=== PATIENT | male | born 1995 | race Caucasian/White ===

== ENCOUNTER 2019-02-27 20:42 | Emergency (ER) | payer BC, SELFPAY ==
[2019-02-27 20:45] VITALS: BP 158/143; PULSE 92; RESP 18; TEMP 36.6; O2SAT 96
--- NOTE | 2019-02-27 21:37 | DI.RAD_ITS ---
EXAM: XR TOE LT GREAT INDICATION: pain, injury. COMPARISON: No exams were available for comparison TECHNIQUE: 2D digital imaging was performed. FINDINGS: There is a nondisplaced fracture at the lateral base of the distal phalanx of the great toe. There i s no significant separation at the articular surface. No additional fractures are seen. There is so ft tissue swelling of the great toe. IMPRESSION: Nondisplaced intra-articular fracture at the lateral base of the distal phalanx of the great toe.
--- NOTE | 2019-02-27 22:19 | DI.VRAD_ITS ---
PROCEDURE INFORMATION: Exam: XR Left Toe(s) Exam date and time: 02/27/2019 9:39 PM Age: 23 years old Clinical indication: Toes; Left; Patient HX: Pain, injury TECHNIQUE: Imaging protocol: XR Left toes. Views: Minimum 2 views. COMPARISON: No relevant prior studies available. FINDINGS: Bones/joints: No displaced fracture. A small linear lucency is seen along the lateral base articular surface. This may represent a small vascular groove. Cannot exclude a minor nondisplaced fracture.. Soft tissues: Soft tissue swelling of the great toe.. IMPRESSION: 1. Soft tissue swelling. 2. No displaced fracture. Linear lucency of lateral distal phalanx base articular surface. Possibly a nondisplaced fracture. May represent a vascular groove. Dictated and Authenticated by: Rayray Mead MD. Ordering:LALO Oshea MD
--- NOTE | 2019-02-27 22:37 | W.ED.GENAD ---
Discharge Plan Disposition Patient Disposition: HOME Condition: Good Discharge Details Chief Complaint: Orthopedic Clinical Impression: Fracture of toe Primary Care Provider: Oskar Tavares ED Provider: Dorie Ramirez Home Meds and New Rx's Prescriptions: No Action No Known Home Meds RF: 0 Discharge Instructions Instructions: RICE Therapy (ED) Additional Instructions: Rest. Activities as tolerated. Elevate injury to prevent swelling. Nash tape for comfort (use guaze between toes). Post operative for support Ice to the area of discomfort for 15 min. 3-5 times daily. Motrin every 8 hours with food or Tylenol every 6 hours for soreness if needed over the counter for comfort. Followup with orthopedic doctor as discussed in one week. Return for any worsening or concerns sooner if needed. Referrals: Dmitri Donovan MD [ [facility] STAFF PHYSICIAN] - Discharge Data Discharge Date/Time-TO BE ENTERED AT DEPARTURE: 02/27/19 22:50 Medical Decision Making Is a 23-year-old patient who presents to the emergency room for complaints of left great toe injury which he sustained when falling down 10 stairs. Patient denies any other sites of pain or injury. Fall occurred 2 days ago. Patient does report mild soreness left elbow but denies any significant neck or back pain. He denies any other extremity injury. Patient denies headache, dizziness, nausea, vomiting no vision change or blurred vision. No chest pain no difficulty breathing shortness of breath or wheezing. No abdominal pain or hematuria. Again patient is only complaint of left great toe. Patient has an otherwise benign physical exam with the exception of tenderness of his left great toe with no associated deformity. Distal neurovascularly intact. Flexion extension intact. X-rays ordered. X-rays revealFINDINGS: Bones/joints: No displaced fracture. A small linear lucency is seen along the lateral base articular surface. This may represent a small vascular groove. Cannot exclude a minor nondisplaced fracture.. Soft tissues: Soft tissue swelling of the great toe.. IMPRESSION: 1. Soft tissue swelling. 2. No displaced fracture. Linear lucency of lateral distal phalanx base articular surface. Possibly a nondisplaced fracture. May represent a vascular groove. Dictated and Authenticated by: Rayray Mead MD. Patient offered nash tape and postop shoe. Declines use of crutches. Rice encouraged. Encouraged follow-up with orthopedics as this is intra-articular. Patient reports his understanding. Referral was provided. The patient was stable and requested discharge. Prior to discharge, my usual and customary return precautions were reviewed with the patient - this included follow-up instructions and reasons to return to the Emergency Department if conditions worsens, does not improve as expected, or other new concerns arise. HPI General Date/Time Provider Initiated Documentation: 02/27/19 21:17. HPI Narrative: Is a 23-year-old patient presenting to the emergency room for complaints of a fall. Patient reports he fell down approximately 10 steps. Patient does report he injured his tailbone but is primarily complaining of left great toe pain. Patient reports pain with ambulation. Fall occurred 2 days ago. Patient denies head neck or significant back pain at this time. Denies difficulty breathing shortness of breath or wheezing. Denies any other extremity injury. Patient complains of mild swelling at the great toe. Denies any open wounds. Denies any numbness, tingling or weakness. Again continued pain with ambulation. Related Data Home Medications Medication Instructions Recorded Confirmed Unknown [No Known Home Meds] 06/04/14 06/04/14 Allergies Allergy/AdvReac Type Severity Reaction Status Date / Time No Known Allergies Allergy Verified 09/18/18 11:37 General Stated Complaint: Orthopedic POLI: 4 Review of Systems All systems reviewed & are unremarkable except as noted in HPI and below Constitutional Constitutional: Denies headache(s) ENT Ears, Nose, Mouth, and Throat: Denies headache(s) and Denies neck pain Musculoskeletal Musculoskeletal: Denies back pain, Reports joint swelling, Reports limited range of motion, Denies neck pain, Denies numbness and Denies stiffness Integumentary/Breasts Skin/Breast: Denies wounds Neurologic Neurologic: Denies headache(s) and Denies numbness PFSH Medical History Hearing loss Family History Mother No problems noted. Father Crohn's disease Other No problems noted. Social History Smoking/Tobacco Use Status: Never Alcohol Intake: current Alcohol Intake frequency: a few times a month Drug use: Never Substance use type: does not use Do you feel safe at home: Yes Exam Narrative Exam Narrative: CONST: Healthy appearing patient, in no acute distress. Well hydrated. Alert and oriented. NECK: Normal visual inspection. FROM. Trachea midline. No Midline tenderness. CHEST: Normal insepection of the chest. No pain with palpation of the chest MUSCULOSKELETAL: Normal Gait. FROM of all extremities. No knee pain with palpation motion pain with palpation or calf pain with palpation. No ankle pain with palpation. Patient is only focal left great toe tenderness. No obvious deformity. Mild swelling present. Sensation is intact. Patient is able to flex and extend, Nothing to indicate a ligamentous injury. SKIN: Normal. Dry. No rashes. No wounds NEURO: Alert and awake. Speech clear. PSYCH: Normal affect. Cooperative. Course Vital Signs Vital signs: Vital Signs Temperature 36.6 C 02/27/19 20:45 Pulse 92 H 02/27/19 20:45 Respiratory Rate 18 02/27/19 20:45 Blood Pressure 158/143 H 02/27/19 20:45 Pulse Oximetry 96 02/27/19 20:45 Temperature 36.6 C 02/27/19 20:45 Temperature Source Skin 02/27/19 20:45 Pulse 92 H 02/27/19 20:45 Respiratory Rate 18 02/27/19 20:45 Respiratory Effort Non-Labored 02/27/19 20:48 Blood Pressure 158/143 H 02/27/19 20:45 Blood Pressure Position Sitting 02/27/19 20:45 Pulse Oximetry 96 02/27/19 20:45 Oxygen Delivery Method Room Air 02/27/19 20:45 Oxygen Flow Rate 0 02/27/19 20:45 Pain Level 4 02/27/19 20:49
[2019-02-28 00:15] VITALS: PULSE 92; RESP 18; TEMP 36.6; O2SAT 96
== END 2019-02-27 22:50 | disposition home or self-care (01) ==
PROVIDERS: Emergency Provider Physician Assistant; PCP Pediatrics
DX: S92.402A Displaced unspecified fracture of left great toe, initial encounter for closed fracture (principal); W10.8XXA Fall (on) (from) other stairs and steps, initial encounter
CPT/HCPCS: 99283; 73660

== ENCOUNTER 2021-03-14 13:09 | Outpatient (CLI) | payer BC, SELFPAY ==
--- NOTE | 2021-03-14 11:30 | DI.RAD_ITS ---
Exam(s) XR CERVICAL SPINE COMP 4-5V EXAM: XR CERVICAL SPINE COMP 4-5V CLINICAL HISTORY: neck pain, cervicalgia, M54.2 TECHNIQUE: COMPARISON: No exams were available for comparison FINDINGS: Six views were obtained. No bony abnormality seen. Intervertebral disc spaces are well maintained. Alignment appears within normal limits. Neural foramina appear normal on oblique views. Prevertebral soft tissues appear intact. IMPRESSION: Negative examination of the cervical spine. RADIATION DOSE DELIVERED: Total DLP
== END 2021-03-14 13:29 ==
PROVIDERS: PCP Nurse Practitioner Family; Visit Provider Emergency Medicine
DX: M54.2 Cervicalgia (principal)
CPT/HCPCS: 72050

== ENCOUNTER 2021-09-13 01:49 | Outpatient (CLI) | payer BC, SELFPAY ==
--- OUTSIDE RECORDS SUMMARY | 2021-09-13 01:50 | XMS_ITS | Encounter Summary ---
:1995 Author Organization [place] [address] Care Team Providers Name Role Phone Oskar Tavares MD Primary Care Provider Reason for Visit Reason Onset Date Comments Medication Refill 04/09/2013 Encounter Details Date Type Department Care Team Description 04/09/2013 Refill Dermatology at [facility] Aileen Cid MD Acne (Primary Dx) [address] [facility] [place] [address] [facility] [phone] [place], [place] [address] (Wo rk) Social History Tobacco Use Types Packs/Day Years Used Date Never Assessed Sex Assigned at Date Recorded Not on file documented as of this encounter Plan of Treatment Not on filedocumented as of this encounter Visit Diagnoses Diagnosis Acne - Primary Other acne documented in this encounter Care Teams Float Remover Relationship Specialty Start Date End Date Oskar Tavares MD PCP - General 01/16/10 07/09/21 [place] [address] documented as of this encounter
--- OUTSIDE RECORDS SUMMARY | 2021-09-13 01:50 | XMS_ITS | Encounter Summary ---
:1995 Author Organization [facility] [place] [address] Care Team Providers Name Role Phone Oskar Tavares MD Primary Care Provider Reason for Visit Reason Comments Acne Encounter Details Date Type Department Care Team Description 03/04/2013 [facility] [address] [place] [address] [facility] [phone] [address]DER[facility]Y [place], [place] [address] (Wo rk) Social History Tobacco Use Types Packs/Day Years Used Date Never Assessed Sex Assigned at Date Recorded Not on file documented as of this encounter Progress Notes Shannan De Souza, RN - 03/04/2013 3:54 PM EST Problem: 1. Acne On Isotretinoin 2. Starting 2nd month Course has been: Month 1: 40 mg Subjective: One month follow-up for isotretinoin therapy. Patient doing well with few complaints. Cheilitis tolerable. Not sharing pills. Knows not to drink alcohol. Knows not to donate blood or take vitamin A supplements. Not depressed or suicidal. Knows to call immediately if he becomes depressed or suicidal while on Isotretinooin. No major complications or concerns. Happy with results thus far. Knows this is a 5 month course. Hasnot started any new medications. Not drinking alcohol and knows the risks of this while on Isotretinoin. ROS: Gen: feeling well ENT: Lips dry, but tolerable Objective: Pleasant, well appearing young man in NAD. Examination of skin from the waist up was performed. This includes examination of the skin of the face, ears, neck, chest, axillae, left and right upper extremities, hands, back, and abdomen. Significant skin findings: Scattered inflammatory papules, pustules and open comedones. Scattered scars. Diagnosis: 1. Acne responding to Isotretinoin 2. Wants to continue Plan: 1. Labs today. I'll call only with significant abnormalities. 2. Isotretinoin to 60 mg daily, 30 day supply, no RF. 3. Call with complications as stated above. 4. FU in 1 month. I am documenting this encounter acting as the scribe for and in the presence of Dr. Cid. Shannan De Souza,JOSE ANTONIO I performed the above scribed service and agree with the accuracy of the documentation in this encounter. Aileen Cid MD Section of Dermatology documented in this encounter Plan of Treatment Not on filedocumented as of this encounter Procedures Procedure Name Priority Date/Time Associated Comments Diagnosis DIFFERENTIAL, AUTOMATED Routine 03/04/2013 3:55 R esults for this PM EST procedure are i n the results section. CBC (WITH DIFF) Routine 03/04/2013 3:55 Acne Results f or this PM EST procedure are i n the results section. TRIGLYCERIDE Routine 03/04/2013 3:55 Acne Results for this PM EST procedure are i n the results section. ALANINE AMINOTRANSFERASE Routine 03/04/2013 3:55 Acne Results for this PM EST procedure are i n the results section. ASPARTATE Routine 03/04/2013 3:55 Acne Results for this AMINOTRANSFERASE PM EST procedure a re in the results section. CHOLESTEROL, TOTAL Routine 03/04/2013 3:55 Acne Result s for this PM EST procedure are i n the results section. documented in this encounter Results Differential, Automated (03/04/2013 3:55 PM EST) P athologist Signature Neutrophils % 48.3 37.0 - CERNER 77.0 % MILLENNIUM Neutr Abs (ANC) 3.54 1.50 - CERNER 8.00 MILLENNIUM x10(3)/mcL Lymphocytes % 43.4 20.0 - CERNER 50.0 % MILLENNIUM Lymphocytes Abs 3.2 1.2 - 5.2 CERNER x10(3)/mcL MILLENNIUM Monocytes % 6.1 2.0 - 12.0 CERNER % MILLENNIUM Monocyte Abs 0.4 0.2 - 1.0 CERNER x10(3)/mcL MILLENNIUM Eosinophils % 2.0 0.0 - 7.0 CERNER % MILLENNIUM Eosinophils Abs 0.2 0.0 - 0.5 CERNER x10(3)/mcL MILLENNIUM Basophils % 0.1 0.0 - 2.0 CERNER % MILLENNIUM Basophils Abs 0.0 0.0 - 0.2 CERNER x10(3)/mcL MILLENNIUM Immature Gran % 0.10 0.00 - CERNER 0.66 % MILLENNIUM Comment: Immature granulocytes(IG's)percentage an d absolute count will include metamyelocytes, myelocytes, and promyelo cytes. Blood smears from CBCs yielding IG's will be scanned manually for concor dance. If this scan disagrees with the automated IG or if promyelocytes are not ed, a manual differential will be performed. Maribeth Gran Abs 0.01 0.00 - 0.05 x10(3)/mcL CER NER MILLENNIUM Specimen Anatomical Collection Method Collection Time Receive d Time (Source) Location / / Volume Laterality Blood specimen 03/04/2013 3:55 PM 014 6:03 (specimen) EST PM EST Aileen Cid MD HEMATOLOGY ORDERABLES Performing Organization Address City/[facility] Phon e Number [address] CERNER MILLENNIUM Aspartate Aminotransferase (03/04/2013 3:55 PM EST) P athologist Signature AST 19 10 - 40 CERNER unit/L MILLENNIUM Specimen Anatomical Collection Method Collection Time Receive d Time (Source) Location / / Volume Laterality Blood specimen 03/04/2013 3:55 PM 014 6:02 (specimen) EST PM EST Resulting Agency Comment Spec In Lab Aileen Cid MD CHEMISTRY ORDERABLES Performing Organization Address City/[facility] Phon e Number [address] CERNER MILLENNIUM Alanine Aminotransferase (03/04/2013 3:55 PM EST) athologist Signature ALT 10 0 - 40 CERNER unit/L MILLENNIUM Specimen Anatomical Collection Method Collection Time Receive d Time (Source) Location / / Volume Laterality Blood specimen 03/04/2013 3:55 PM 014 6:02 (specimen) EST PM EST Resulting Agency Comment Spec In Lab Aileen Cid MD CHEMISTRY ORDERABLES Performing Organization Address City/[facility]/[place] [address] CERNER MILLENNIUM (ABNORMAL) CBC (with Diff) (03/04/2013 3:55 PM EST) athologist Signature WBC 7.4 4.5 - 13.0 CERNER x10(3)/mcL MILLENNIUM RBC 5.47 (H) 4.50 - CERNER 5.30 MILLENNIUM x10(6)/mcL Hemoglobin 15.6 13.0 - CERNER 16.0 gm/dL MILLENNIUM Hematocrit 43.8 37.0 - CERNER 49.0 % MILLENNIUM MCV 80.1 76.0 - CERNER 96.0 fL MILLENNIUM MCH 28.5 25.0 - CERNER 35.0 pg MILLENNIUM MCHC 35.6 32.0 - CERNER 36.5 gm/dL MILLENNIUM Platelets 179 145 - 370 CERNER x10(3)/mcL MILLENNIUM RDWSD 35.7 35.0 - CERNER 46.0 fL MILLENNIUM RDWCV 12.3 10.9 - CERNER 14.4 % MILLENNIUM MPV 11.7 9.0 - 12.0 CERNER fL MILLENNIUM Specimen Anatomical Collection Method Collection Time Receive d Time (Source) Location / / Volume Laterality Blood specimen 03/04/2013 3:55 PM 014 6:03 (specimen) EST PM EST Resulting Agency Comment Spec In Lab Aileen Cid MD HEMATOLOGY ORDERABLES Performing Organization Address City/[facility]/[place] [address] CERNER MILLENNIUM Cholesterol, total (03/04/2013 3:55 PM EST) athologist Signature Chol, Total 140 <=199 mg/dL CERNER MILLENNIUM Comment: Recommendations of the NCEP Adult Treatm ent Panel for the following risk cutoff thresholds for the [place] popul[place] n: Desirable: <200 mg/dL Borderline High: 200-239 mg/dL High: > or = 240 mg/dL Specimen Anatomical Collection Method Collection Time Receive d Time (Source) Location / / Volume Laterality Blood specimen 03/04/2013 3:55 PM 014 6:02 (specimen) EST PM EST Resulting Agency Comment Spec In Lab Aileen Cid MD CHEMISTRY ORDERABLES Performing Organization Address City/[facility]/ZIP [facility] Phon e Number [address] CERNER MILLENNIUM Triglyceride (03/04/2013 3:55 PM EST) P athologist Signature Triglycerides 145 <=149 CERNER mg/dL MILLENNIUM Comment: Reference Range: Normal triglycerides: ??<150 mg/dL Borderline high: ??150-199 mg/dL High: ??200-499 mg/dL Very high: ??>ux=870 mg/dL MORIAH 2001; 285(19):7107-1015 Specimen Anatomical Collection Method Collection Time Receive d Time (Source) Location / / Volume Laterality Blood specimen 03/04/2013 3:55 PM 014 6:02 (specimen) EST PM EST Resulting Agency Comment Spec In Lab Aileen Cid MD CHEMISTRY ORDERABLES Performing Organization Address [facility] Phon e Number [address] CERNER MILLENNIUM documented in this encounter Visit Diagnoses Diagnosis Acne - Primary Other acne documented in this encounter Care Teams Egg Processor Relationship Specialty Start Date End Date Oskar Tavares MD PCP - General 01/16/10 07/09/21 [place] [address] documented as of this encounter
--- OUTSIDE RECORDS SUMMARY | 2021-09-13 01:50 | XMS_ITS | Encounter Summary ---
:1995 Author Organization [facility] [place] [address] Care Team Providers Name Role Phone Oskar Tavares MD Primary Care Provider Reason for Visit Reason Onset Date Comments Medication Refill 05/07/2013 Encounter Details Date Type Department Care Team Description 05/07/2013 Refill Dermatology at [facility] Aileen Cid MD Acne (Primary Dx) [address] [facility] [place] [address] [facility] [phone] [place], [place] [address] (Wo rk) Social History Tobacco Use Types Packs/Day Years Used Date Never Assessed Sex Assigned at Date Recorded Not on file documented as of this encounter Plan of Treatment Not on filedocumented as of this encounter Visit Diagnoses Diagnosis Acne - Primary Other acne documented in this encounter Care Teams Utilities Service Investigator Relationship Specialty Start Date End Date Oskar Tavares MD PCP - General 01/16/10 07/09/21 [place] [address] documented as of this encounter
--- OUTSIDE RECORDS SUMMARY | 2021-09-13 01:50 | XMS_ITS | Encounter Summary ---
:1995 Author Organization [facility] [place] [address] Care Team Providers Name Role Phone Oskar Tavares MD Primary Care Provider Reason for Visit Reason Comments Acne Encounter Details Date Type Department Care Team Description 07/15/2013 [facility] [address] [place] [address] [facility] [phone] RD-DERMATOLOGY [place], [place] [address] (Wo rk) Social History Tobacco Use Types Packs/Day Years Used Date Unknown If Ever Smoked Sex Assigned at Date Recorded Not on file documented as of this encounter Progress Notes Velia Iraheta LPN - 07/15/2013 2:16 PM EDT Problem: 1. Acne On Isotretinoin 2. Starting 6th month Course has been: Month 1: 40mg Month 2: 60mg Month 3: 60mg Month 4: 60mg Month 5: 60mg Subjective: One month follow-up for isotretinoin therapy. [...] with complications as stated above. 4. FU RTC I am documenting this encounter acting as the scribe for and in the presence of Dr. Cid. Velia BradleyJulius SUBMARINE DIVER I performed the above scribed service and agree with the accuracy of the documentation in this encounter. Aileen Cid MD Section of Dermatology documented in this encounter Plan of Treatment Not on filedocumented as of this encounter Procedures Procedure Name Priority Date/Time Associated Comments Diagnosis HEMOGRAM Routine 07/15/2013 2:09 Acne Results for this PM EDT procedure are i n the results section. DIFFERENTIAL, AUTOMATED Routine 07/15/2013 2:09 Acne R esults for this PM EDT procedure are i n the results section. CBC (WITH DIFF) Routine 07/15/2013 2:09 Acne PM EDT TRIGLYCERIDE Routine 07/15/2013 2:09 Acne Results for this PM EDT procedure are i n the results section. ALANINE AMINOTRANSFERASE Routine 07/15/2013 2:09 Acne Results for this PM EDT procedure are i n the results section. ASPARTATE Routine 07/15/2013 2:09 Acne Results for this AMINOTRANSFERASE PM EDT procedure a re in the results section. CHOLESTEROL, TOTAL Routine 07/15/2013 2:09 Acne Result s for this PM EDT procedure are i n the results section. documented in this encounter Results Differential, Automated (07/15/2013 2:09 PM EDT) P athologist Signature Neutrophils % 53.5 37.0 - CERNER 77.0 % MILLENNIUM Neutr Abs (ANC) 3.38 1.50 - CERNER 8.00 MILLENNIUM x10(3)/mcL Lymphocytes % 37.3 20.0 - CERNER 50.0 % MILLENNIUM Lymphocytes Abs 2.4 1.2 - 5.2 CERNER x10(3)/mcL MILLENNIUM Monocytes % 7.3 2.0 - 12.0 CERNER % MILLENNIUM Monocyte Abs 0.5 0.2 - 1.0 CERNER x10(3)/mcL MILLENNIUM Eosinophils % 1.6 0.0 - 7.0 CERNER % MILLENNIUM Eosinophils Abs 0.1 0.0 - 0.5 CERNER x10(3)/mcL MILLENNIUM Basophils % 0.3 0.0 - 2.0 CERNER % MILLENNIUM Basophils Abs 0.0 0.0 - 0.2 CERNER x10(3)/mcL MILLENNIUM Immature Gran % 0.00 0.00 - CERNER 0.66 % MILLENNIUM Comment: Immature granulocytes(IG's)percentage an d absolute count will include metamyelocytes, myelocytes, and promyelo cytes. Blood smears from CBCs yielding IG's will be scanned manually for concor dance. If this scan disagrees with the automated IG or if promyelocytes are not ed, a manual differential will be performed. Maribeth Gran Abs 0.00 0.00 - 0.05 x10(3)/mcL CER NER MILLENNIUM Specimen Anatomical Collection Method Collection Time Receive d Time (Source) Location / / Volume Laterality Blood specimen 07/15/2013 2:09 PM 014 3:48 (specimen) EDT PM EDT Resulting Agency Comment Spec In Lab Aileen Cid MD HEMATOLOGY ORDERABLES Performing Organization Address City/State/[place] [address] CERNER MILLENNIUM (ABNORMAL) Hemogram (07/15/2013 2:09 PM EDT) P athologist Signature WBC 6.3 4.5 - 13.0 CERNER x10(3)/mcL MILLENNIUM RBC 5.38 (H) 4.50 - CERNER 5.30 MILLENNIUM x10(6)/mcL Hemoglobin 16.1 (H) 13.0 - CERNER 16.0 gm/dL MILLENNIUM Hematocrit 47.3 37.0 - CERNER 49.0 % MILLENNIUM MCV 87.9 76.0 - CERNER 96.0 fL MILLENNIUM MCH 29.9 25.0 - CERNER 35.0 pg MILLENNIUM MCHC 34.0 32.0 - CERNER 36.5 gm/dL ENNIUM Platelets 188 145 - 370 CERNER x10(3)/mcL ENNIUM RDWSD 41.6 35.0 - CERNER 46.0 fL MILLENNIUM RDWCV 13.1 10.9 - CERNER 14.4 % MILLENNIUM MPV 12.5 (H) 9.0 - 12.0 CERNER fL MILLENNIUM Specimen Anatomical Collection Method Collection Time Receive d Time (Source) Location / / Volume Laterality Blood specimen 07/15/2013 2:09 PM 014 3:48 (specimen) EDT PM EDT Resulting Agency Comment Spec In Lab Aileen Cid MD HEMATOLOGY ORDERABLES Performing Organization Address [facility] Phon e Number [address] CERNER MILLENNIUM Aspartate Aminotransferase (07/15/2013 2:09 PM EDT) P athologist Signature AST 31 10 - 40 CERNER unit/L MILLENNIUM Specimen Anatomical Collection Method Collection Time Receive d Time (Source) Location / / Volume Laterality Blood specimen 07/15/2013 2:09 PM 014 3:47 (specimen) EDT PM EDT Resulting Agency Comment Spec In Lab Aileen Cid MD CHEMISTRY ORDERABLES Performing Organization Address City/[facility] Phon e Number [address] CERNER MILLENNIUM Alanine Aminotransferase (07/15/2013 2:09 PM EDT) P athologist Signature ALT 19 0 - 40 CERNER unit/L MILLENNIUM Specimen Anatomical Collection Method Collection Time Receive d Time (Source) Location / / Volume Laterality Blood specimen 07/15/2013 2:09 PM 014 3:47 (specimen) EDT PM EDT Resulting Agency Comment Spec In Lab Aileen Cid MD CHEMISTRY ORDERABLES Performing Organization Address City/[facility]/ZIP [facility] [place] [address] CERNER MILLENNIUM Cholesterol, total (07/15/2013 2:09 PM EDT) P athologist Signature Chol, Total 117 <=199 mg/dL CERNER MILLENNIUM Comment: Recommendations of the NCEP Adult Treatm ent Panel for the following risk cutoff thresholds for the [place] populatio n: Desirable: <200 mg/dL Borderline High: 200-239 mg/dL High: > or = 240 mg/dL Specimen Anatomical Collection Method Collection Time Receive d Time (Source) Location / / Volume Laterality Blood specimen 07/15/2013 2:09 PM 014 3:47 (specimen) EDT PM EDT Resulting Agency Comment Spec In Lab Aileen Cid MD CHEMISTRY ORDERABLES Performing Organization Address [facility] Phon e Number [address] CERNER MILLENNIUM Triglyceride (07/15/2013 2:09 PM EDT) P athologist Signature Triglycerides 76 <=149 CERNER mg/dL MILLENNIUM Comment: Reference Range: Normal triglycerides: ??<150 mg/dL Borderline high: ??150-199 mg/dL High: ??200-499 mg/dL Very high: ??>di=085 mg/dL MORIAH 2001; 285(19):4266-2799 Specimen Anatomical Collection Method Collection Time Receive d Time (Source) Location / / Volume Laterality Blood specimen 07/15/2013 2:09 PM 014 3:47 (specimen) EDT PM EDT Resulting Agency Comment Spec In Lab Aileen Cid MD CHEMISTRY ORDERABLES Performing Organization Address [facility]/ZIP [facility] Phon e Number [address] CERNER MILLENNIUM documented in this encounter Visit Diagnoses Diagnosis Acne - Primary Other acne documented in this encounter Care Teams Ranch Helper Relationship Specialty Start Date End Date Oskar Tavares MD PCP - General 01/16/10 07/09/21 [place] [address] documented as of this encounter
--- OUTSIDE RECORDS SUMMARY | 2021-09-13 01:50 | XMS_ITS | Encounter Summary ---
:1995 Author Organization [facility] [place] [address] Care Team Providers Name Role Phone Oskar Tavares MD Primary Care Provider Reason for Visit Reason Comments Acne Encounter Details Date Type Department Care Team Description 06/17/2013 [facility] ([facility] Dx[facility] [address] [place] [address] [facility] [phone] RD-DERMATOLOGY [place], [place] [address] (Wo rk) Social History Tobacco Use Types Packs/Day Years Used Date Unknown If Ever Smoked Sex Assigned at Date Recorded Not on file documented as of this encounter Progress Notes Shannan De Souza, RN - 06/17/2013 3:18 PM EDT Problem: 1. Acne On Isotretinoin 2. Starting 5th month Course has been: Month 1: 40 mg Month 2: 60 mg Month 3: 60 mg Month 4: 60 mg Subjective: One month follow-up for isotretinoin [...] Acne responding to Isotretinoin 2. Wants to continue, few inflammatory papules with some scarring Plan: 1. Labs today. I'll call only [...] Date/Time Associated Comments Diagnosis DIFFERENTIAL, AUTOMATED Routine 06/17/2013 2:58 R esults for this PM EDT procedure are i n the results section. CBC (WITH DIFF) Routine 06/17/2013 2:58 Acne Results f or this PM EDT procedure are i n the results section. TRIGLYCERIDE Routine 06/17/2013 2:58 Acne Results for this PM EDT procedure are i n the results section. ALANINE AMINOTRANSFERASE Routine 06/17/2013 2:58 Acne Results for this PM EDT procedure are i n the results section. ASPARTATE Routine 06/17/2013 2:58 Acne Results for this AMINOTRANSFERASE PM EDT procedure a re in the results section. CHOLESTEROL, TOTAL Routine 06/17/2013 2:58 Acne Result s for this PM EDT procedure are i n the results section. documented in this encounter Results Differential, Automated (06/17/2013 2:58 PM EDT) P athologist Signature Neutrophils % 51.8 37.0 - CERNER 77.0 % MILLENNIUM Neutr Abs (ANC) 3.56 1.50 - CERNER 8.00 MILLENNIUM x10(3)/mcL Lymphocytes % 40.0 20.0 - CERNER 50.0 % MILLENNIUM Lymphocytes Abs 2.8 1.2 - 5.2 CERNER x10(3)/mcL MILLENNIUM Monocytes % 6.8 2.0 - 12.0 CERNER % MILLENNIUM Monocyte Abs 0.5 0.2 - 1.0 CERNER x10(3)/mcL MILLENNIUM Eosinophils % 1.2 0.0 - 7.0 CERNER % MILLENNIUM Eosinophils [...] Location / / Volume Laterality Blood specimen 06/17/2013 2:58 PM 014 3:39 (specimen) EDT PM EDT Aileen Cid MD HEMATOLOGY ORDERABLES Performing Organization Address City/State/ZIP [place] [address] CERNER MILLENNIUM (ABNORMAL) Aspartate Aminotransferase (06/17/2013 2:58 PM EDT) P athologist Signature AST 48 (H) 10 - 40 CERNER unit/L MILLENNIUM Specimen Anatomical Collection Method Collection Time Receive d Time (Source) Location / / Volume Laterality Blood specimen 06/17/2013 2:58 PM 014 3:40 (specimen) EDT PM EDT Resulting Agency Comment Spec In Lab Aileen Cid MD CHEMISTRY ORDERABLES Performing Organization Address City/State/[place] [address] CERNER MILLENNIUM Alanine Aminotransferase (06/17/2013 2:58 PM EDT) athologist Signature ALT 24 0 - 40 CERNER unit/L MILLENNIUM Specimen Anatomical Collection Method Collection Time Receive d Time (Source) Location / / Volume Laterality Blood specimen 06/17/2013 2:58 PM 014 3:40 (specimen) EDT PM EDT Resulting Agency Comment Spec In Lab Aileen Cid MD CHEMISTRY ORDERABLES Performing Organization Address City/[facility]/ZIP Code Phon e Number [address] CERNER MILLENNIUM CBC (with Diff) (06/17/2013 2:58 PM EDT) athologist Signature WBC 6.9 4.5 - 13.0 CERNER x10(3)/mcL MILLENNIUM RBC 5.27 4.50 - 5.30 CERNER x10(6)/mcL MILLENNIUM Hemoglobin 15.4 13.0 - 16.0 CERNER gm/dL MILLENNIUM Hematocrit 45.7 37.0 - 49.0 CERNER % MILLENNIUM MCV 86.7 76.0 - 96.0 CERNER fL MILLENNIUM MCH 29.2 25.0 - 35.0 CERNER pg MILLENNIUM MCHC 33.7 32.0 - 36.5 CERNER gm/dL MILLENNIUM Platelets 195 145 - 370 CERNER x10(3)/mcL MILLENNIUM RDWSD 40.5 35.0 - 46.0 CERNER fL MILLENNIUM RDWCV 12.8 10.9 - 14.4 CERNER % MILLENNIUM MPV 11.9 9.0 - 12.0 CERNER fL MILLENNIUM Specimen Anatomical Collection Method Collection Time Receive d Time (Source) Location / / Volume Laterality Blood specimen 06/17/2013 2:58 PM 014 3:39 (specimen) EDT PM EDT Resulting Agency Comment Spec In Lab Aileen Cid MD HEMATOLOGY ORDERABLES Performing Organization Address City/[facility]/ZIP Code Phon e Number [address] CERNER MILLENNIUM Cholesterol, total (06/17/2013 2:58 PM EDT) athologist Signature Chol, Total 140 <=199 mg/dL CERNER MILLENNIUM Comment: Recommendations of the NCEP Adult Treatm ent Panel for the following risk cutoff thresholds for the [place] populatio n: Desirable: <200 mg/dL Borderline High: 200-239 mg/dL High: > or = 240 mg/dL Specimen Anatomical Collection Method Collection Time Receive d Time (Source) Location / / Volume Laterality Blood specimen 06/17/2013 2:58 PM 014 3:40 (specimen) EDT PM EDT Resulting Agency Comment Spec In Lab Aileen Cid MD CHEMISTRY ORDERABLES Performing Organization Address [facility] Phon e Number [address] CERNER MILLENNIUM Triglyceride (06/17/2013 2:58 PM EDT) athologist Signature Triglycerides 149 <=149 CERNER mg/dL MILLENNIUM Comment: Reference Range: Normal triglycerides: ??<150 mg/dL Borderline high: ??150-199 mg/dL High: ??200-499 mg/dL Very high: ??>dc=556 mg/dL MORIAH 2001; 285(62):0531-0551 Specimen Anatomical Collection Method Collection Time Receive d Time (Source) Location / / Volume Laterality Blood specimen 06/17/2013 2:58 PM 014 3:40 (specimen) EDT PM EDT Resulting Agency Comment Spec In Lab Aileen Cid MD CHEMISTRY ORDERABLES Performing Organization Address [facility] Phon e Number [address] CERNER MILLENNIUM documented in this encounter Visit Diagnoses Diagnosis Acne - Primary Other acne documented in this encounter Care Teams Glassine Machine Tender Relationship Specialty Start Date End Date Oskar Tavares MD PCP - General 01/16/10 07/09/21 [place] [address] documented as of this encounter
--- OUTSIDE RECORDS SUMMARY | 2021-09-13 01:50 | XMS_ITS | Clinical Summary ---
:1995 Author Organization [facility] [place] [address] Care Team Providers Name Role Phone Unknown Primary Care Provider Unavailable Allergies No known active allergies Medications Medication Sig Dispensed Refills Start Date End Date Status ISOtretinoin One pill a day for 30 capsule 0 07/15/2013 Active (MYORISAN) 20 mg acne; I pledge # capsuleIndications: [id number] Acne ISOtretinoin One pill a day for 30 capsule 0 07/15/2013 Active (MYORISAN) 40 mg acne, I pledge # capsuleIndications: [id number] Acne Active Problems Problem Noted Date Acne 02/17/2013 Social History Tobacco Use Types Packs/Day Years Used Date Unknown If Ever Smoked Sex Assigned at Date Recorded Not on file Plan of Treatment Health Maintenance Due Date Last Done Comments Covid-19 Vaccine (#1) 2002 HPV vaccine (1 - Male 2-dose series) 2008 HIV screen 05/27/2015 Hepatitis C Screening 05/27/2015 Tdap adult 2016 Tetanus vaccine 2016 Influenza (Flu) vaccine (1 of 1 - Influenza standard 10/25/2021 series) Care Teams Corporate Manager Relationship Specialty Start Date End Date Unknown PCP - General 07/10/21 None
--- OUTSIDE RECORDS SUMMARY | 2021-09-13 01:50 | XMS_ITS | Encounter Summary ---
:1995 Author Organization [facility] [place] [address] Care Team Providers Name Role Phone Oskar Tavares MD Primary Care Provider Reason for Visit Reason Onset Date Comments Medication Refill 04/09/2013 Encounter Details Date Type Department Care Team Description 04/09/2013 Refill Dermatology at [facility] Aileen Cid MD Acne (Primary Dx) [address] [place] [address] [facility]-DERMATOLOGY [phone] [place], [place] [address] (Wo rk) Social History Tobacco Use Types Packs/Day Years Used Date Never Assessed Sex Assigned at Date Recorded Not on file documented as of this encounter Plan of Treatment Not on filedocumented as of this encounter Visit Diagnoses Diagnosis Acne - Primary Other acne documented in this encounter Care Teams Machine Design Teacher Relationship Specialty Start Date End Date Oskar Tavares MD PCP - General 01/16/10 07/09/21 [place] [address] documented as of this encounter
--- OUTSIDE RECORDS SUMMARY | 2021-09-13 01:51 | XMS_ITS | Encounter Summary ---
:1995 Author Organization [facility] Address [address] [place] [address] Care Team Providers Name Role Phone Oskar Tavares MD Primary Care Provider Reason for Visit Reason Comments Childhood Sensorineural Hearing Loss Encounter Details Date Type Department Care Team Description 11/12/2010 Office Visit Audiology at [facility] Anyi Lainez Sensorineural hearing [facility] L, AUD loss, asymmetrical [facility] (Primary Dx) [place], [place] CENTER [address] AUDIOLOGY DEPT [phone] [place], [place] [address] Social History Tobacco Use Types Packs/Day Years Used Date Never Assessed Sex Assigned at Date Recorded Not on file documented as of this encounter Progress Notes Anyi Lainez MA - 11/13/2010 10:55 AM EDT AUDIOLOGY SECTION HISTORY: Naga Harvey, age 15 years, was seen today for reevaluations of his hearing and amplification. Family had the FM fish and wildlife warden with them for today's visit as well. Reason for visit: continue monitoring hearing in light of unilateral left ear sensorineural hearing loss for which Naga uses a personal hearing aid. He also uses FM amplification (coupled to the hearing aid) at school. Accompanied by: mother, Emerald Harvey, who, along with Naga, contributed to the following information: Hearing loss: unilateral, left ear, sensorineural hearing loss (identified following referral upon hearing screen in May 2001 - age 6 years). Right ear has remained within normal limits. ?? No overt changes in hearing noted. Etiology / risk factors for hearing loss: undetermined. Reportedly previous CT was unremarkable. and family histories were negative for childhood sensorineural hearing loss. ?? 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 Amplification: left ear hearing aid since July 2004. Tried a tube fit with Dr. Sun Husain but returned to full earmold as this was preferable per Naga. ?? Naga did not use the left hearing aid over the summer. He uses the device primarily at school. He feels that the earmold is getting loose. Ear / health history: construction carpenters helper is Dr. Dae Peña at [facility] ([place], [place]). no interim ear infections/fluid. Family plans to transfer audiologic care back to those through Dr. Peña's office. Educational placement and supports: ?? Today family reported that Naga attends 8th grade; 504 includes FM amplification (via personal BURGOS) as well as consultative services through the [facility] (Ange Finn). Naga reportedly did well academically last year. Today, Naga reported some periodic static at school (not observed when using hearing aid at home). Family questioned if this was related to some interference (? FM channels?). As noted previously, family aware of services available from [facility] Site Inspector in Audiology, Lynette Carmona M.Ed. Please refer to Naga's medical record for any additional information, if needed. EVALUATION: see audiogram note: Ear canals appeared clear of any occluding cerumen (ear wax) upon otoscopic check for each ear. HEARING AID RIGHT LEFT STYLE none BTE MAKE/MODEL Phonak/Certena M CASING COLOR black SERIAL NUMBER [id number] BATTERY SIZE 13 OTHER >CHRISTIANO/FM battery door PROGRAM/SETTINGS FITTING ALGORITHM DSL (child) VERIFICATION METHOD REM w/RECD (via insert); updated 10.19.2009; SREM on file PROGRAMS P1=general P2=FM+M P3=mute DISABLED FEATURES OTHER COMMENTS >VC +0/-6 >program button=on WARRANTY ORIGINAL FIT DATE 02.03.2008 CURRENT STATUS repair, L&D until 04.23.2010 EARMOLD/COUPLING (if BTE) LAB [facility] (style / material / vent / color) 6 / otoblast (disappear ear) / pressure vent IMPRESSION DATE 11.12.2010 INVOICE # TUBE SIZE 13T OTHER >ship to family w/investment ordered Earmold: current earmold (fabricated in Nov 2007 through [employer]) required retubing. As Naga noted, the earmold was loose fitting. Impression for a new earmold was taken today. The ear canal appeared clear pre- and post-impression. Hearing aid: appeared to be in good condition upon visual inspection. Listening and verifit checks were good. Reviewed the ability to consider slim tube fitting if interested. Although this was not successful for Naga previously given physical fit concerns (was using standard dome and complained that it moved around too much in th ear), we discussed the merits of possible trial again with custom earmold tip. With this in mind, requested that investment be shipped to family with earmold so they may pursue this locally if they like. Functional left aided measures: completed at last visit; not repeated today given stable hearing. FM EQUIP - SCHOOL: [place], [place] TRANSMITTER MEAT SELECTOR #1 (to left BURGOS) MEAT SELECTOR #2 MAKE/MODEL Phonak / Inspiro Phonak / MLxi none SERIAL NUMBER [id number] CHANNEL N60 (default) N60 (default) FM SETTINGS - >FM level= -4 >HI=Certena >bfzv=488 Hz/normal JAIME / AUDIO SHOE lapel jaime >AS9 to personal Phonak / Certena BURGOS VERIFICATION DATE 10.19.2009 10.19.2009 (w/school transmitter) 11.12.2010 (w/clinic transmitter) FIT DATE ? OTHER/COMMENTS FM fish and wildlife warden appeared to be working well upon listening check. Reset the FM fish and wildlife warden using the Phonak / FM Successware software given Naga's complaints that there was some static at school. Also adjusted the FM level to - 4 today as this appeared to meet transparency better today. Still, Naga agreed to let his mother and school staff know if any Fm equipment concerns persist such as the reported static. He was encouraged to be specific in his observations (e.g. Which classroom, where was teacher standing when static occurred) as these may help determine sources and point to solutions. Naga reported that the FM sounded good here in the office setting. IMPRESSIONS: Stable hearing right ear. Left ear approximately 5 decibels better (via air-conduction and bone conduction today) when compared with results of Sep 2009 (at which time Naga appeared to have some negative middle ear pressure). Left hearing aid appeared to be functioning well. FM receiverappeared to be working well here in the clinic but checked setting with slight adjustment. Naga agreed to let his mother and school staff know if he has any ongoing concerns regarding the sound quality of the FM system at school. If so, then school should follow-up with [facility] staff for assistance in troubleshooting on site. RECOMMENDATIONS: 1. PENDING: As requested, new left earmold being sent to family directly from lab. Family agreed to contact the clinic upon receipt if there are any concerns regarding fit/function. (NOTE: Also requested that lab send investment to family along with the earmold.) 2. As planned, otolaryngology follow-up to Dr. Peña. 3. Continue use of left hearing aid with the goal being 'full-time' during all waking hours with theexception of water activities (e.g. bathing, swimming). 4. Audiologic reevaluation in one year; sooner if concerns arise regarding hearing or amplification.As noted above, family plans to follow-up locally through Dr. Peña's office. 5. Continued educational supports given educationally significant hearing loss. Historically this has been through the [facility]. 6. Continued strategies to aid in communication access. It is important to remember that although Naga has better access to speech with the consistent use of amplification (in this case, a hearing aid in the left ear), the hearing aid does not 'restore' hearing to 'normal'. Even with consistent use of amplification, Naga will have to continue relying upon visual cues tofill in the gaps of that which is not audible in running speech. When communicating with Naga, it is important to first get his attention, face him, and speak in a well-projected yet clear voice - all at a distance of less than 6 feet and favoring his right (better) hearing ear. Reductions in background noise and reverberation (echoes) levels are critical as these further degrade the speech signal. Naga should receive preferential seating in all settings; close to the person speaking and away from any obvious noise sources (e.g. ventilation blowers/fans, open windows/doorways) and favoring his right ear. At school, use of FM amplification is expected to provide improved access to the teacher's voice in the classroom setting. Anyi Lainez M.A., [facility] [address] [facility]; [place] [address] (v) / [phone] (f) Attachment: audiogram CC: Parents of Naga Harvey [address] [place] [phone] CC: Oskar Tavares MD / PCP CC: Felipe Peña MD / [facility] [address] [place] [address] CC: Attn: School Nurse [address] [address] CC: Attn: Ange Finn [facility]. [address] [place] [address]; [address] [place] [address] documented in this encounter Plan of Treatment Not on filedocumented as of this encounter Visit Diagnoses Diagnosis Sensorineural hearing loss, asymmetrical - Primary documented in this encounter Care Teams Ladle Repairman Relationship Specialty Start Date End Date Oskar Tavares MD PCP - General 01/16/10 07/09/[address] [place], [place] [id number] documented as of this encounter
--- OUTSIDE RECORDS SUMMARY | 2021-09-13 01:51 | XMS_ITS | Encounter Summary ---
:1995 Author Organization [facility] [address] Care Team Providers Name Role Phone Alis Noel MD Primary Care Provider Reason for Visit Reason Comments Acne Encounter Details Date Type Department Care Team Description 02/04/2013 Office Visit Dermatology at [facility] Silvano Cid MD Acne (Primary Dx) [facility] [address] [place] [address] [facility] [phone] RD-DERMATOLOGY [place], [place] [address] (Wo rk) Social History Tobacco Use Types Packs/Day Years Used Date Never Assessed Sex Assigned at Date Recorded Not on file documented as of this encounter Progress Notes Shannan De Souza RN - 02/04/2013 11:48 AM EST DERMATOLOGY CONSULT NOTE Date of service: 02/04/2013 Naga Harvey : 1995 Provider: Aileen Cid MD PROBLEM:Acne The patient is seen at the request of ALIS NOEL MD , who instructed the patient to be seen for evaluation of above HPI Naga is a 17 y.o. year old male here today for acne on his face, states he has been on doxycyclinein the past without help, retin-a for many years, very harsh on his skin. ADR: Review of patient's allergies indicates no known allergies. MEDS: No current outpatient prescriptions on file prior to visit. ROS General: feeling well Skin: denies other skin complaints EXAM General: NAD, pleasant, cooperative Skin:Examination of skin from the waist up was performed. This includes examination of the skin of the face, ears, neck, chest, axillae, left and right upper extremities, hands, back, and abdomen. Significant skin findings: A. Erythematous papules, pustules, open and closed comedones. Inflammatory and or Comedonal papules distributed: Face, chest, back and shoulders. ASSESSMENT/PLAN: A. Severe inflammatory and comedonal acne vulgaris. Accutane is discussed fully with the patient. It is a very effective drug to treat acne vulgaris buthas many significant side effects. Chief among these are teratogenesis, hepatic injury, dyslipidemiaand severe drying of the mucous membranes. All of these issues have been discussed in details. Monthly blood tests to monitor lipids and liver functions will be necessary. Expect painful dryness and/orfissuring around the lips, eyes, and other moist areas of the body. Balms may be protective. Contactlens may be too painful to wear temporarily while on this drug. Episodes of significant depression have been reported, including suicidal ideation and attempts in rare cases. It may also cause pseudotumor cerebri and hyperostosis. The patient will report any such changes in mood, depressive symptoms or suicidal thoughts, headaches, joint or bone pains. Female patients MUST use two simultaneous methods of family planning. Accutane is Category X for , meaning it will cause teratogenic malformations, and MUST be avoided while onthis drug. The dose is 0.5-1 mg per kg in two divided doses for 15-20 weeks. After discussion of these important issues, he indicates complete understanding of all of the above,and Does wish to proceed with accutane therapy. B. Labs today I will call with significant abnormalities Begin Accutane 40 mg C. RTC in one month , coordinate with his brother, Sent to Suzanne Roman for scheduling I am documenting this encounter acting as the scribe for and in the presence of Dr. Cid. Shannan De Souza,JOSE ANTONIO I performed the above scribed service and agree with the accuracy of the documentation in this encounter. Aileen Cid MD Section of Dermatology [facility] cc: Self No address on file documented in this encounter Plan of Treatment Not on filedocumented as of this encounter Procedures Procedure Name Priority Date/Time Associated Comments Diagnosis DIFFERENTIAL, AUTOMATED Routine 02/04/2013 12:31 Results for this PM EST procedure are i n the results section. CBC (WITH DIFF) Routine 02/04/2013 12:31 Acne Results for this PM EST procedure are i n the results section. TRIGLYCERIDE Routine 02/04/2013 12:31 Acne Results for this PM EST procedure are i n the results section. ALANINE AMINOTRANSFERASE Routine 02/04/2013 12:31 Acne Results for this PM EST procedure are i n the results section. ASPARTATE Routine 02/04/2013 12:31 Acne Results for this AMINOTRANSFERASE PM EST procedure a re in the results section. CHOLESTEROL, TOTAL Routine 02/04/2013 12:31 Acne Resul ts for this PM EST procedure are i n the results section. documented in this encounter Results Differential, Automated (02/04/2013 12:31 PM EST) P athologist Signature Neutrophils % 45.4 37.0 - CERNER 77.0 % MILLENNIUM Neutr Abs (ANC) 3.37 1.50 - CERNER 8.00 MILLENNIUM x10(3)/mcL Lymphocytes % 45.8 20.0 - CERNER 50.0 % MILLENNIUM Lymphocytes Abs 3.4 1.2 - 5.2 CERNER x10(3)/mcL MILLENNIUM Monocytes % 6.1 2.0 - 12.0 CERNER % MILLENNIUM Monocyte Abs 0.4 0.2 - 1.0 CERNER x10(3)/mcL MILLENNIUM Eosinophils % 2.3 0.0 - 7.0 CERNER % MILLENNIUM Eosinophils [...] Location / / Volume Laterality Blood specimen 02/04/2013 12:31 3 3:50 (specimen) PM EST PM EST Aileen Cid MD HEMATOLOGY ORDERABLES Performing Organization Address City/[facility]/ZIP [facility] [place] [address] CERNER MILLENNIUM Aspartate Aminotransferase (02/04/2013 12:31 PM EST) P athologist Signature AST 19 10 - 40 CERNER unit/L MILLENNIUM Specimen Anatomical Collection Method Collection Time Receive d Time (Source) Location / / Volume Laterality Blood specimen 02/04/2013 12:31 3 3:50 (specimen) PM EST PM EST Resulting Agency Comment Spec In Lab Aileen Cid MD CHEMISTRY ORDERABLES Performing Organization Address City/[facility]/ZIP Code Phon e Number [address] CERNER MILLENNIUM Alanine Aminotransferase (02/04/2013 12:31 PM EST) athologist Signature ALT 11 0 - 40 CERNER unit/L MILLENNIUM Specimen Anatomical Collection Method Collection Time Receive d Time (Source) Location / / Volume Laterality Blood specimen 02/04/2013 12:31 3 3:50 (specimen) PM EST PM EST Resulting Agency Comment Spec In Lab Aileen Cid MD CHEMISTRY ORDERABLES Performing Organization Address City/[facility] [address] CERNER MILLENNIUM (ABNORMAL) CBC (with Diff) (02/04/2013 12:31 PM EST) P athologist Signature WBC 7.4 4.5 - 13.0 CERNER x10(3)/mcL MILLENNIUM RBC 5.35 (H) 4.50 - CERNER 5.30 MILLENNIUM x10(6)/mcL Hemoglobin 14.9 13.0 - CERNER 16.0 gm/dL MILLENNIUM Hematocrit 43.8 37.0 - CERNER 49.0 % MILLENNIUM MCV 81.9 76.0 - CERNER 96.0 fL MILLENNIUM MCH 27.9 25.0 - CERNER 35.0 pg MILLENNIUM MCHC 34.0 32.0 - CERNER 36.5 gm/dL MILLENNIUM Platelets 194 145 - 370 CERNER x10(3)/mcL MILLENNIUM RDWSD 36.3 35.0 - CERNER 46.0 fL MILLENNIUM RDWCV 12.3 10.9 - CERNER 14.4 % MILLENNIUM MPV 12.2 (H) 9.0 - 12.0 CERNER fL MILLENNIUM Specimen Anatomical Collection Method Collection Time Receive d Time (Source) Location / / Volume Laterality Blood specimen 02/04/2013 12:31 3 3:50 (specimen) PM EST PM EST Resulting Agency Comment Spec In Lab Aileen Cid MD HEMATOLOGY ORDERABLES Performing Organization Address City/[facility] [place] [address] CERNER MILLENNIUM Cholesterol, total (02/04/2013 12:31 PM EST) athologist Signature Chol, Total 118 <=199 mg/dL CERNER MILLENNIUM Comment: Recommendations of the NCEP Adult Treatm ent Panel for the following risk cutoff thresholds for the [place] populatio n: Desirable: <200 mg/dL Borderline High: 200-239 mg/dL High: > or = 240 mg/dL Specimen Anatomical Collection Method Collection Time Receive d Time (Source) Location / / Volume Laterality Blood specimen 02/04/2013 12:31 3 3:50 (specimen) PM EST PM EST Resulting Agency Comment Spec In Lab Aileen Cid MD CHEMISTRY ORDERABLES Performing Organization Address City/[facility] [place] [address] CERNER MILLENNIUM Triglyceride (02/04/2013 12:31 PM EST) P athologist Signature Triglycerides 66 <=149 CERNER mg/dL MILLENNIUM Comment: Reference Range: Normal triglycerides: ??<150 mg/dL Borderline high: ??150-199 mg/dL High: ??200-499 mg/dL Very high: ??>gg=090 mg/dL MORIAH 2001; 285[address]):[id number] Specimen Anatomical Collection Method Collection Time Receive d Time (Source) Location / / Volume Laterality Blood specimen 02/04/2013 12:31 3 3:50 (specimen) PM EST PM EST Resulting Agency Comment Spec In Lab Aileen Cid MD CHEMISTRY ORDERABLES Performing Organization Address City/State/[place] [address] [facility] documented in this encounter Visit Diagnoses Diagnosis Acne - Primary Other acne documented in this encounter Care Teams Food Assembler Commissary Kitchen Relationship Specialty Start Date End Date Alis Noel MD PCP - General 01/16/10 07/09/21 [address] [place] [address] documented as of this encounter
--- OUTSIDE RECORDS SUMMARY | 2021-09-13 01:51 | XMS_ITS | Encounter Summary ---
:1995 Author Organization [facility] [place] [address] Care Team Providers Name Role Phone Oskar Tavares MD Primary Care Provider Encounter Details Date Type Department Care Team Description 11/14/2010 Orders Only Audiology at [facility] [place] [address] Social History Tobacco Use Types Packs/Day Years Used Date Never Assessed Sex Assigned at Date Recorded Not on file documented as of this encounter Plan of Treatment Not on filedocumented as of this encounter Procedures Procedure Name Priority Date/Time Associated Diagnosis Comme nts AUDIOLOGY SCAN Routine 11/12/2010 documented in this encounter Results Scan Doc: Audiology (11/12/2010) Narrative This result has an attachment that is no t available. Juani Gordon MEDIA MGR SCAN EXT ORDR/RSLT documented in this encounter Visit Diagnoses Not on filedocumented in this encounter Care Teams Ledge Man Relationship Specialty Start Date End Date Oskar Tavares MD PCP - General 01/16/10 07/09/[address] [place] [place] [address] documented as of this encounter
--- NOTE | 2021-10-19 08:18 | W.CARDEVENT ---
Date of service: 10/19/21 Time of Service: 08:19 Cardiac Event Recorder Referring Provider:: Mauri Grullon Indications:: Syncope Cardiac Event Note: This is a 14-day event monitor, ordered for syncope Rhythm throughout was sinus with an average heart rate of 86. Minimum was 49, maximum 163 There were very rare ventricular ectopic beats. There was one 4 beat run of nonsustained ventricular tachycardia There were very rare atrial premature beats There was no atrial fibrillation, no high-grade AV block, no pauses greater than 3 seconds Patient symptoms were reported, all of which corresponded to sinus rhythm
== END 2021-09-13 01:50 | disposition home or self-care (01) ==
LOC: RT 01:49
PROVIDERS: PCP Nurse Practitioner Family; Visit Provider Nurse Practitioner Family
DX: R55 Syncope and collapse (principal)
CPT/HCPCS: 93246

== ENCOUNTER 2022-03-29 01:41 | Outpatient (CLI) | payer BC, SELFPAY ==
[2022-03-29 15:17] LABS: Abs Immature Grans 0.02 10^3/uL (0.0-0.06); Absolute Basophil Count 0.03 10^3/uL (0.0-0.2); Absolute Eosinophil Count 0.13 10^3/uL (0.0-0.7); Absolute Lymphocyte Count 2.34 10^3/uL (1.2-3.4); Absolute Monocyte Count 0.54 10^3/uL (0.1-0.8); Absolute Neutrophil Count 5.28 10^3/uL (1.2-6.7); Basophils % 0.4; Eosinophils % 1.6; HCT 49.1 % (40.0-50.0); HGB 16.7 g/dL (13.5-17.5); Immature Grans % 0.2; Lymphocytes % 28.1; MCH 28.8 pg (27.0-33.0); MCV 85 fL (80-95); MPV 11.4 fL (8.0-11.0); Monocytes % 6.5; Neutrophils % 63.2; Platelet Count 227 10^3/uL (130-400); RBC 5.79 10^6/uL (4.36-5.78); RDW 11.9 % (11.8-14.1); RDW-SD 36.6 fL; WBC 8.34 10^3/uL (4.4-10.8)
[2022-03-29 15:36] LABS: ALT 19 U/L (16-63); AST 17 U/L (15-37); Albumin 4.6 g/dL (3.4-5.0); Alkaline Phosphatase 42 U/L (46-116); Anion Gap 5.9 mmol/L (3-11); BUN 11 mg/dL (7-18); Bilirubin, Total 0.7 mg/dL (0.2-1.0); CO2 33.1 mmol/L (21.0-32.0); CREATININE 1.4 mg/dL (0.70-1.30); Calcium 9.4 mg/dL (8.5-10.1); Chloride 104 mmol/L (98-107); Estimated GFR 71.98 (mL/min/1.73m2); Glucose 80 mg/dL (74-106); Potassium 3.8 mmol/L (3.5-5.1); Sodium 143 mmol/L (136-145); Total Protein 8.5 g/dL (6.4-8.2)
== END 2022-03-29 01:42 | disposition home or self-care (01) ==
LOC: LBO 01:41
PROVIDERS: PCP Nurse Practitioner Family; Visit Provider Nurse Practitioner Family
DX: R42 Dizziness and giddiness (principal); F41.8 Other specified anxiety disorders
CPT/HCPCS: 36415; 80053; 85025

== ENCOUNTER 2023-06-20 21:05 | Outpatient (REF) | payer BC, SELFPAY | END 2023-06-20 21:06 | disposition home or self-care (01) | LOC: LBN 21:05 | PROVIDERS: PCP Nurse Practitioner Family; Visit Provider Physician Assistant Medical | DX: J02.9 Acute pharyngitis, unspecified (principal) | CPT/HCPCS: 87070 ==

== ENCOUNTER 2023-09-22 08:57 | Emergency (ER) | payer OTHER, SELFPAY ==
[2023-09-22 09:01] VITALS: BP 155/99; PULSE 97; RESP 14; TEMP 36.4; O2SAT 100
--- NOTE | 2023-09-22 09:22 | W.ED.GENAD ---
Discharge Plan Disposition Patient Disposition: Home Discharge Details Clinical Impression: Hemorrhoid Primary Care Provider: Mauri Grullon ED Provider: Sharif Biswas Home Meds and New Rx's Prescriptions: New pramoxine [Proctofoam] 1 % foam 1 applic MN TID PRN (Reason: Rectal bleeding or irritation) Qty: 15 0RF Continued ibuprofen 400 mg tablet 400 mg PO Q8H acetaminophen 325 mg capsule 325 mg PO ONCE PRN Discharge Instructions Instructions: Bloody Stools, Adult ED, Hemorrhoids ED Additional Instructions: At this time I do not feel that there are any emergent findings with your bloody stool but if you start having significant worsening of condition, start becoming lightheaded with standing or have uncontrollable nonstop being rectal bleeding you should return immediately to the emergency department for reassessment. Please use medication as prescribed and follow-up with primary care provider for reassessment to ensure improvement of symptoms or further testing and workup if needed. Referrals: Mauri Grullon, [employer] [facility] [Primary Care Provider] - 1 week Discharge Data Discharge Date/Time-TO BE ENTERED AT DEPARTURE: 09/22/23 10:30 HPI General Mode of arrival: ambulatory. Date/Time Provider Initiated Documentation: 09/22/23 08:58. Limitations to Documentation: no limitations. Information obtained by: patient and RN notes reviewed. History of Present Illness 28 year old M presents to the emergency department with the chief complaint of Bloody bowel movement, described as mild and moderate, Patient started experiencing this minute(s) (20) and it has been now resolved. No relieving factors improve symptom(s), No exacerbating factors reported . Patient notes no other symptoms.. Patient did receive the following treatments prior to arrival, none Related Data Home Medications ?Medication ?Instructions ?Recorded ?Confirmed acetaminophen 325 mg capsule 325 mg PO ONCE PRN 10/11/19 09/22/23 ibuprofen 400 mg tablet 400 mg PO Q8H 10/11/19 09/22/23 pramoxine 1 % topical foam 1 applic MN TID PRN Rectal 09/22/23 (Proctofoam) bleeding or irritation #15 grams Previous Rx's ?Medication ?Instructions ?Recorded pramoxine 1 % topical foam 1 applic MN TID PRN Rectal 09/22/23 (Proctofoam) bleeding or irritation #15 grams Allergies Allergy/AdvReac Type Severity Reaction Status Date / Time No Known Allergies Allergy Verified 09/22/23 09:06 General Stated Complaint: GI Bleed POLI: 3 Review of Systems Constitutional Constitutional: Denies chills, Denies fever(s) and Denies malaise Cardiovascular Cardiovascular: Denies syncope and Denies rapid heart rate Gastrointestinal Gastrointestinal: Reports as per HPI, Denies melena, Reports hematochezia, Denies diarrhea and Denies vomiting Neurologic Neurologic: Denies syncope Exam Const General: cooperative, no acute distress and not ill appearing Orientation: alert, awake and oriented x3 HENMT Mouth: moist mucous membranes Resp Effort & Inspection: normal respiratory effort, able to speak in complete sentences and no respiratory distress GI Rectal Exam: visual inspection normal, normal sphincter tone, heme positive stool (Dried blood present around rectum), No lesions and No mass Skin General skin exam: no rashes or lesions noted Neuro General: patient alert, patient awake, patient oriented x3, moves all extremities and no focal motor deficits Sensory Exam: no sensory deficits noted Course Vital Signs Vital signs: Vital Signs Temperature 36.4 C 09/22/23 09:01 Pulse 97 H 09/22/23 09:01 Respiratory Rate 14 09/22/23 09:01 Blood Pressure 155/99 H 09/22/23 09:01 Pulse Oximetry 100 09/22/23 09:01 Temperature 36.4 C 09/22/23 09:01 Temperature Source Skin 09/22/23 09:01 Pulse 97 H 09/22/23 09:01 Respiratory Rate 14 09/22/23 09:01 Respiratory Effort Normal, Non-Labored 09/22/23 09:05 Blood Pressure 155/99 H 09/22/23 09:01 Blood Pressure Position Sitting 09/22/23 09:01 Pulse Oximetry 100 09/22/23 09:01 Oxygen Delivery Method Room Air 09/22/23 09:01 Oxygen Flow Rate 0 09/22/23 09:01 Pain Level 0 09/22/23 09:01 Medical Decision Making Patient presenting to the emergency department for chief complaint of bleeding while having bowel movement. Patient states that this morning he had what he will call a normal bowel movement but then had wiped with bright red blood. By the second time he wiped bleeding was resolved. He does state some anal discomfort over the past couple days and feeling of dry skin near her rectum. Patient denies all other symptoms. Physical exam shows some dried blood noted around rectum otherwise unremarkable examination. I was not able to appreciate any external hemorrhoids. While I was unable to appreciate anything external I do feel there is a chance of internal hemorrhoid given circumstance. Patient does state family history of Crohn's disease which also is on differential list. Will check CBC and CMP otherwise given resolution of symptoms, patient's young age, no other concerning features such as hypotension and syncope pain or discomfort do feel that it is okay for patient to follow-up on outpatient basis if labs are okay Reviewed patient's labs and CBC shows no signs of anemia, CMP is also nonemergent. I do feel that patient can follow-up on outpatient basis. When reassessing patient he did states that he did go to the bathroom and have another bowel movement with no further bleeding noted but some slight discomfort. This heightens my suspicion of a small internal hemorrhoid versus potentially a slight fissure. Will prescribe Proctofoam for suspected hemorrhoid and give patient clear return and follow-up precautions. Patient placed upon follow-up list for follow-up with primary care provider for reassessment of symptoms or further workup if needed. after discussion of diagnosis and plan of care patient has no further needs, questions, or concerns and states clear understanding to return to the emergency department for any worsening symptoms. This documentation was generated using [employer] dictation system, please disregard any oddities of phrase or misspellings. Lab Data Lab results reviewed: Yes I reviewed the patient's lab results. 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 Father Crohn's disease Social History Smoking/Tobacco Use Status: Never Second Hand Exposure: Yes Smoking risk assessment performed?: Yes Alcohol Intake: current Alcohol Intake frequency: a few times a month Alcohol type: hard liquor Drug use: Rarely Substance use type: marijuana Adopted: No Caregiver/Support person: No Foster care: No Household members: family Housing: apartment Number of Children: 0 number of grandchildren: 0 Communication Needs: Hard of Hearing Education Level: college Details: [employer] entering Senior year 2019 Do you need help understanding health information?: Never current occupation: dsp Pets and animals: Yes Pets and animals: dog(s) and snake(s) Sexually active: No Do you think of yourself as: straight/heterosexual Current gender identity: male What is your relationship status?: How often do you talk on the phone with friends or family?: twice per week How often do you get together with friends or relatives?: once per week How often do you attend jehovah's witness or anglican services?: decline to answer Do you belong to any clubs or organized social groups?: no Panel score (0-1 are the most socially isolated patients): 1 Gabi/Mormonism: No preference Agree to transfusion: Yes Seatbelt use: always Helmet use: Yes Drive intox or ride w/intox driver's license reviewing officer: No Working smoke detector in home: Yes Carbon monox detector in home: Yes Firearms in home: Yes Firearms unloaded and locked: Yes Do you feel safe at home: Yes PAWSS Have you Been Recently Intoxicated or Drunk Within the Last 30 days?: No Have you Ever Experienced Previous Episodes of Alcohol Withdrawal?: No Have you ever Experienced Withdrawal Seizures?: No Have you ever Experienced Delirium Tremens(DT)s?: No Have you ever undergone Alcohol Rehabilitation Treatment (i.e, inpt ot outpatient treatment programs)?: No Have you ever Experienced Blackouts?: No Have you ever Combined Alcohol with other Downers within the last 90 days?: No Have you ever Combined Alcohol with any other Substance of Abuse during the last 90 days?: No Positive Blood Alcohol level on Presentation? [PCS.BAL]: No Evidence of Increased Autonomic Activity (i.e. HR>120, tremor, sweating, agitation, nausea)?: No Result: 0
[2023-09-22 10:03] LABS: Abs Immature Grans 0.02 10^3/uL (0.0-0.06); Absolute Basophil Count 0.04 10^3/uL (0.0-0.2); Absolute Eosinophil Count 0.18 10^3/uL (0.0-0.7); Absolute Lymphocyte Count 1.49 10^3/uL (1.2-3.4); Absolute Neutrophil Count 3.69 10^3/uL (1.2-6.7); Basophils % 0.7 %; Eosinophils % 3.1 %; HCT 45.3 % (40.0-50.0); HGB 15.5 g/dL (13.5-17.5); Immature Grans % 0.3 %; MCH 29.4 pg (27.0-33.0); MCHC 34.2 % (32.0-36.0); MCV 86 fL (80-95); MPV 11.4 fL (8.0-11.0); Monocytes % 5.2 %; Neutrophils % 64.7 %; Platelet Count 199 10^3/uL (130-400); RBC 5.27 10^6/uL (4.36-5.78); RDW 11.9 % (11.8-14.1); RDW-SD 37.4 fL; WBC 5.72 10^3/uL (4.4-10.8)
[2023-09-22 10:05] LABS: ALT 25 U/L (16-63); AST 18 U/L (15-37); Albumin 4.3 g/dL (3.4-5.0); Alkaline Phosphatase 51 U/L (46-116); Anion Gap 4.8 mmol/L (3-11); BUN 12 mg/dL (7-18); Bilirubin, Total 0.38 mg/dL (0.2-1.0); CO2 33.2 mmol/L (21.0-32.0); CREATININE 1.3 mg/dL (0.70-1.30); Calcium 9.3 mg/dL (8.5-10.1); Chloride 104 mmol/L (98-107); Glucose 105 mg/dL (74-106); Potassium 3.9 mmol/L (3.5-5.1); Sodium 142 mmol/L (136-145); Total Protein 8.5 g/dL (6.4-8.2)
[2023-09-22 10:24] VITALS: BP 140/75; PULSE 78; RESP 18; TEMP 36.3; O2SAT 98
--- NOTE | 2023-09-22 10:59 | NUR.NOTE ---
Referral faxed to PCP for rectal bleeding, suspected hemorrhoids, in 1 to 2 weeks. Nursing Note:
== END 2023-09-22 10:30 | disposition home or self-care (01) ==
LOC: ER 10:49
PROVIDERS: Emergency Provider Nurse Practitioner Family; PCP Nurse Practitioner Family
DX: K64.4 Residual hemorrhoidal skin tags (principal)
CPT/HCPCS: 36415; 80053; 99283; 85025

== ENCOUNTER 2023-11-18 20:21 | Outpatient (REF) | payer OTHER, SELFPAY ==
[2023-11-18 21:27] LABS: Abs Immature Grans 0.02 10^3/uL (0.0-0.06); Absolute Basophil Count 0.05 10^3/uL (0.0-0.2); Absolute Eosinophil Count 0.19 10^3/uL (0.0-0.7); Absolute Lymphocyte Count 2.09 10^3/uL (1.2-3.4); Absolute Monocyte Count 0.43 10^3/uL (0.1-0.8); Absolute Neutrophil Count 6.24 10^3/uL (1.2-6.7); Basophils % 0.6 %; Eosinophils % 2.1 %; HCT 46.4 % (40.0-50.0); HGB 15.7 g/dL (13.5-17.5); Immature Grans % 0.2 %; Lymphocytes % 23.2 %; MCH 29.3 pg (27.0-33.0); MCHC 33.8 % (32.0-36.0); MCV 87 fL (80-95); MPV 11.7 fL (8.0-11.0); Monocytes % 4.8 %; Neutrophils % 69.1 %; Platelet Count 238 10^3/uL (130-400); RBC 5.36 10^6/uL (4.36-5.78); RDW 11.9 % (11.8-14.1); RDW-SD 37.4 fL; WBC 9.02 10^3/uL (4.4-10.8)
[2023-11-20 23:33] LABS: Bartonella Henselae IgG <1:128 titer (<1:128); Bartonella Henselae IgM <1:20 titer (<1:20); Bartonella Quintana IgG <1:128 titer (<1:128); Bartonella Quintana IgM <1:20 titer (<1:20)
== END 2023-11-18 20:22 | disposition home or self-care (01) ==
LOC: LBN 20:21
PROVIDERS: PCP Nurse Practitioner Family; Visit Provider Nurse Practitioner Family
DX: R59.0 Localized enlarged lymph nodes (principal)
CPT/HCPCS: 85025; 86611

== ENCOUNTER 2025-01-03 14:25 | Outpatient (CLI) | payer OTHER, SELFPAY ==
[2025-01-03 16:04] LABS: Hemoglobin A1C 5.0 % (<5.7)
[2025-01-03 16:06] LABS: Cholesterol 175 mg/dL (<200); HDL Cholesterol 39 mg/dL (>or=40)
== END 2025-01-03 14:26 | disposition home or self-care (01) ==
LOC: LOS 14:26
PROVIDERS: PCP Nurse Practitioner Family; Visit Provider Nurse Practitioner Family
DX: Z13.1 Encounter for screening for diabetes mellitus (principal); Z13.220 Encounter for screening for lipoid disorders
CPT/HCPCS: 36415; 80061; 83036